=== PATIENT | male | born 1985 | race Two or more races ===

== ENCOUNTER 2018-07-06 00:06 | Emergency (ER) | payer MEDICAID, OTHER ==
[~2018-07-06] VITALS: Ht 160 cm; Wt 63.5 kg
[2018-07-06] MEDS ORDERED: PROPOFOL 100 ML IV SCH (01:59)
[2018-07-06] MEDS ORDERED: SUCCINYLCHOLINE CHLORIDE 20 MG/ML 10ML VIAL IV ONE ×2 (02:00→02:02)
[2018-07-06] MEDS ORDERED: ETOMIDATE (2MG/ML) 20ML VIAL IV ONE ×2 (02:00→02:02)
[2018-07-06 02:07] LABS: Basophils # (auto) 0.2 uL; Basophils % (auto) 2.4 % (0.0-2.0); Eosinophils # (auto) 0.1 uL; Hematocrit 46.5 % (41.0-53.0); Lymphocytes # (auto) 1.5 uL; Lymphocytes % (auto) 20.5 % (10.0-50.0); Mean Corpuscular Hemoglobin 32.1 pg (28.0-32.0); Mean Corpuscular Hgb Conc. 34.3 g/dL (32.0-36.0); Mean Corpuscular Volume 93.6 fL (80.0-100.0); Monocytes # (auto) 0.4 uL; Neutrophils # (auto) 5.3 uL; Neutrophils % (auto) 71.1 % (37.0-80.0); Nucleated Red Blood Cells % 0.1 %; Platelet Count (auto) 233 10^3/uL (140-450); Red Blood Cells 4.97 10^6/uL (4.5-5.90); Red Cell Distribution Width 12.6 % (11.8-14.3); White Blood Cell 7.4 10^3/uL (4.4-10.8)
[2018-07-06] MEDS ORDERED: MIDAZOLAM DRIP 50 mg/50mL 50 ML IV SCH (02:09)
[2018-07-06 02:26] LABS: Albumin 3.9 g/dL (3.4-5.0); Calcium 7.9 mg/dL (8.5-10.1); Potassium 3.6 mmol/L (3.5-5.1)
[2018-07-06] MEDS ORDERED: LEVETIRACETAM INJ 1,000 MG in D5W 5% 100 ML IV ONE (02:30)
[2018-07-06 02:33] LABS: Bilirubin, Total 0.3 mg/dL (0.2-1.0)
[2018-07-06] MEDS ORDERED: LEVETIRACETAM 500 MG/5ML INJ IV ONE (03:01)
[2018-07-06 03:09] VITALS: BP 122/73
[2018-07-06 03:09] LABS: BUN/Creatinine Ratio 12.5
== END 2018-07-06 03:32 | disposition short-term general hospital (02) ==
LOC: ER 00:08
DX: S06.5X0A Traumatic subdural hemorrhage without loss of consciousness, initial encounter (principal); I10 Essential (primary) hypertension; F10.10 Alcohol abuse, uncomplicated; R40.4 Transient alteration of awareness; W19.XXXA Unspecified fall, initial encounter; Y93.89 Activity, other specified; Y92.89 Other specified places as the place of occurrence of the external cause; Y99.8 Other external cause status
CPT/HCPCS: 31500; 36415; 36600; 51702; 70450; 71045; 80053; 80320; 82805; 82962; 85025; 93005; 94761; 96365; 99291; J0330; J1953; J2250; J2704; J7060; 94002